=== PATIENT | female | born 1985 | race Caucasian/White ===

== ENCOUNTER 2016-07-09 22:11 | Inpatient (IN) | payer OTHER ==
[2016-07-09 22:42] VITALS: BMI 31.9
[2016-07-10] MEDS ORDERED: LACTATED RINGERS 1,000 ML IV PRN (00:33)
[2016-07-10] MEDS ORDERED: OXYTOCIN IN LR 500 ML IV ONE (00:33)
[2016-07-10] MEDS ORDERED: LIDOCAINE Viscous 2% 15 ML UDCUP ONE (00:53)
[2016-07-10] MEDS ORDERED: LIDOCAINE 1% (PRES FREE) 30 ML VIAL ONE (00:53)
[2016-07-10] MEDS ORDERED: OXYTOCIN 10 UNITS/ML VIAL ONE (00:53)
[2016-07-10] MEDS ORDERED: MINERAL OIL 25 ML BOT ONE (00:53)
[2016-07-10] MEDS ORDERED: PUMP TUBING ONE (00:53)
[2016-07-10] MEDS ORDERED: IV START KIT ONE (00:54)
[2016-07-10 01:50] LABS: HEMATOCRIT 40.7 % (37.0-47.0); HEMOGLOBIN 13.5 gm/l (12.0-16.0); MEAN CELL VOLUME 86.8 fl (81.0-99.0); MEAN CORPUSCULAR HEMOGLOBIN 28.8 pg (27.0-31.0); MEAN CORPUSCULAR HGB CONC 33.2 g/dl (33.0-37.0); RED CELL DISTRIBUTION WIDTH 13.4 % (11.5-14.5)
--- NOTE | 2016-07-10 04:02 | PCMDEL ---
Delivery Note - Labor 1st stage (hr/min):: 4 hr/ 14 min 2nd stage (hr/min):: 0 hr/ 28 min 3rd stage (hr/min):: 0 hr/ 3min Total (hr/min):: 4 hr/ 45 min Pushed (hr/min):: 0 hr/ 20 min - Delivery Delivery (Date): 07/10/16 Delivery (Time): 03:42 Infant Gender: Female Presentation: Cephalic Position: OA Umbilical Cord: 3 Vessel Delayed Cord Clamping:: 2-3 min 1 Minute Total: 9 5 Minute Total: 9 Placenta:: spontaneous and complete EBL:: 200 ml Perineum:: 1st degree ML laceration not repaired Anesthesia/Meds:: none Length ROM:: 3 min Comments:: 31 yr old G3 now P3 at 39 4/7 weeks with uncomplicated , via spontaneous labor and normal vaginal delivery.
[2016-07-10] MEDS ORDERED: BENZOCAINE/MENTHOL 60 APPLIC/BOT TP PRN (04:07)
[2016-07-10] MEDS ORDERED: HYDROCODONE/ACETAMINOPHEN 5/325MG TABLET PO PRN (04:07)
[2016-07-10] MEDS ORDERED: LANOLIN 50 APPLIC/7G TUBE TP PRN (04:07)
[2016-07-10] MEDS ORDERED: OXYCODONE HCL 5 MG TABLET PO PRN (04:07)
[2016-07-10] MEDS: IBUPROFEN 800 MG TABLET PO PRN ×3 (04:30→16:25)
[2016-07-10] MEDS: DOCUSATE SODIUM 100 MG CAPSULE PO PRN (10:36)
[2016-07-11 06:29] LABS: HEMATOCRIT 39.4 % (37.0-47.0); HEMOGLOBIN 12.6 gm/l (12.0-16.0)
[2016-07-11] MEDS: DOCUSATE SODIUM 100 MG CAPSULE PO PRN (08:04)
[2016-07-11] MEDS: IBUPROFEN 800 MG TABLET PO PRN (08:04)
--- NOTE | 2016-07-11 08:08 | PDOC39B ---
Hospital Course: ADMIT DATE: 07/10/16 DISCHARGE DATE: 07/11/2016 ADMISSION DIAGNOSES: Labor at full term PROCEDURES: Normal spontaneous vaginal delivery HISTORY OF PRESENT ILLNESS: 31 year old G3 T2 L2 at 39 weeks 4 days presenting with labor onset. HOSPITAL COURSE: The patient progressed to normal vaginal delivery. By day of discharge the patient is ambulating, eating, voiding, and passing flatus without difficulty. Pain is controlled and lochia is appropriate. She is . - Physical Exam Vital Signs: Temp Pulse Resp BP Pulse Ox 98.8 F 85 18 105/61 07/11/16 02:00 07/10/16 20:00 07/11/16 02:00 07/10/16 20:00 General: Afebrile Psych/Mental Status: Mood/Affect Appropriate, Judgment/Insight Intact, Bonding Well Neurological: Grossly Intact, Alert, Oriented x 4, Normal Gait, Normal Speech, Normal Reflexes, Cranial Nerves 3-12 Intact HEENT: Atraumatic, PERRLA, EOMI, Mucous membr. moist/pink Lungs: Clear to Auscultation Bilaterally, Normal Air Movement Cardiovascular: Regular Rate and Rhythm, Normal S1, Normal S2 Breast: Skin intact Fundus: Firm, Below Umbilicus Abdomen: Normal Bowel Sounds Lochia: Light Extremities: Full ROM, Normal Cap Refill, Normal Pulses Skin: Normal Color, Warm, Dry, Intact - Discharge Diagnosis (1) Normal vaginal delivery Status: AcuteAssessment/Plan: Home today with infant - Discharge Plan Condition: Good Disposition: Home Additional Instructions: Discharge home today with . Vaginal rest times 6 weeks. Normal diet; other activities as tolerated. Follow up with Dr. Govea in office on 2016 at 1;15 pm for 6 weeks check up. Prescriptions: Ibuprofen [IBUPROFEN 800 MG TABLET (SHF)] 800 mg PO Q6H PRN #90 tablet PRN Reason: Pain (Mild)
[2016-07-11 08:12] VITALS: BP 110/60
== END 2016-07-11 12:44 | disposition home or self-care (01) | DRG 775 ==
LOC: FBCOUT 22:11 → FBC 22:13 → FBCOUT 07-10 00:37
PROVIDERS: ADMIT Family Medicine; ATTEND Family Medicine
PROC: 10E0XZZ Delivery of Products of Conception, External Approach (ICD-10-PCS; principal; 2016-07-10)
DX: O70.0 First degree perineal laceration during delivery (principal); Z3A.39 39 weeks gestation of pregnancy; Z37.0 Single live birth